=== PATIENT | female | born 1980 ===

== ENCOUNTER → 2018-08-03 21:18 | Outpatient (REF) | payer OTHER, SELFPAY ==
[2018-08-07 14:30] LABS: RPR Screen Nonreactive (Nonreactive)
[2018-08-08 15:43] LABS: Rubeola Measles IgG > 300.00 AU/mL (< 25.00)
== END ==
LOC: LAB 21:18
PROVIDERS: Visit Provider Family Medicine
DX: Z11.1 Encounter for screening for respiratory tuberculosis (principal); Z11.3 Encounter for screening for infections with a predominantly sexual mode of transmission
CPT/HCPCS: 36415; 86592; 86615; 86648; 86735; 86762; 86765; 86774; 86787; 87591